=== PATIENT | female | born 1985 | race Native Hawaiian/Other Pacific Islander ===

== ENCOUNTER 2020-09-26 08:49 | Outpatient (CLI) | payer BC, OTHER ==
[~2020-09-26] VITALS: Ht 165.1 cm; Wt 111.1 kg
== END 2020-09-26 11:22 | disposition home or self-care (01) ==
LOC: INF 08:49
PROVIDERS: ATTEND Family Medicine
DX: Z23 Encounter for immunization (principal); Z03.89 Encounter for observation for other suspected diseases and conditions ruled out; U07.1 COVID-19
CPT/HCPCS: 96365; M0244